=== PATIENT | male | born 1975 ===

== ENCOUNTER 2020-01-21 06:11 | Observation (INO) ==
[2020-01-21] MEDS ORDERED: hydrALAZINE 20 MG/1 ML VIAL IV PRN (09:29)
[2020-01-21] MEDS ORDERED: ONDANSETRON 4 MG/2 ML VIAL IV PRN (09:29)
[2020-01-21] MEDS ORDERED: ACETAMINOPHEN 325 MG TABLET PO PRN (09:29)
[2020-01-21] MEDS ORDERED: DOCUSATE SODIUM 100 MG CAPSULE PO PRN (09:29)
[2020-01-21] MEDS ORDERED: GLUCAGON 1 MG VIAL IM PRN ×2 (09:29→09:59)
[2020-01-21] MEDS ORDERED: DEXTROSE 50% 25 GM/50 ML VIAL IV PRN ×2 (09:29→09:59)
[2020-01-21 10:19] LABS: Basophils # 0.1 10*3/uL (0.0-0.2); Basophils % 0.6 % (0.0-0.8); Eosinophils # 0.2 10*3/uL (0.0-0.87); Eosinophils % 2.2 % (0.00-10.9); Hematocrit 40.1 VOL% (42.0-52.0); Hemoglobin 13.4 GM/DL (14.0-18.0); Immature Granulocytes % 0.2 %; Immature Granulocytes Absolute 0.02 #; Lymphocytes # 2.8 10*3/uL (1.4-4.0); Lymphocytes % 34.2 % (21.2-54.2); Mean Corpuscular HGB Conc 33.4 GM/DL (32-36); Mean Corpuscular Volume 91.1 FL (87-102); Mean Platelet Volume 10.4 FL (9.6-12.0); Monocytes % 11.6 % (1.7-12.7); Neutrophils % 51.2 % (38.7-73.9); Platelet Count 180 T/CUMM (130-400); Red Cell Distribution Width 13.9 % (9.3-17.3); White Blood Count 8.1 T/CUMM (4-12)
[2020-01-21] MEDS: lisinopriL 5 MG TABLET PO SCH (10:44)
[2020-01-21] MEDS: SIMVASTATIN 10 MG TABLET PO SCH (10:44)
[2020-01-21 10:47] LABS: Albumin 2.9 G/DL (3.4-5.0); Bilirubin,Total 0.6 MG/DL (0.2-1.0); Calcium 8.6 MG/DL (8.5-10.1); Osmolality,Calculated 271.7 MOS/KG (273-304); Total Protein 7.6 G/DL (6.4-8.3)
[2020-01-21] MEDS: INSULIN LISPRO 100 UNIT/ML SUBCUT SCH ×4 (11:50→21:41)
[2020-01-21] MEDS: ENOXAPARIN 40 MG/0.4 ML SYRINGE SUBCUT SCH (12:08)
[2020-01-21 12:50] LABS: Apearance,Urine CLEAR (Clear); Bilirubin,Urine Negative (Negative); Blood, Urine Negative (Negative); Glucose,Urine (UA) Negative (Negative); Ketones,Urine Negative (Negative); Nitrite,Urine Negative (Negative); Protein,Urine Negative; RBC,Urine 4 /HPF (0-4); Squamous Epithelial Cell,Urine Occasional /HPF (0-10); Urine Color Yellow (Yellow); Urine Specific Gravity 1.036 (1.001-1.035); WBC,Urine 1 /HPF (0-6)
[2020-01-22 06:17] LABS: Basophils # 0.1 10*3/uL (0.0-0.2); Basophils % 0.7 % (0.0-0.8); Eosinophils # 0.1 10*3/uL (0.0-0.87); Hematocrit 37.6 VOL% (42.0-52.0); Hemoglobin 12.5 GM/DL (14.0-18.0); Immature Granulocytes % 0.3 %; Immature Granulocytes Absolute 0.02 #; Lymphocytes % 27.5 % (21.2-54.2); Mean Corpuscular HGB Conc 33.2 GM/DL (32-36); Mean Corpuscular Volume 91.9 FL (87-102); Mean Platelet Volume 10.5 FL (9.6-12.0); Neutrophils % 59.5 % (38.7-73.9); Platelet Count 173 T/CUMM (130-400); Red Blood Count 4.09 MC/CUMM (3.8-5.5); Red Cell Distribution Width 13.9 % (9.3-17.3); White Blood Count 7.1 T/CUMM (4-12)
[2020-01-22 06:45] LABS: Calcium 8.2 MG/DL (8.5-10.1); Osmolality,Calculated 272.7 MOS/KG (273-304); Risk Ratio 2.63; Thyroid Stimulating Hormone 0.757 uIU/ml (0.358-3.74)
[2020-01-22 08:38] VITALS: BP 124/72
[2020-01-22] MEDS: lisinopriL 5 MG TABLET PO SCH (09:41)
[2020-01-22] MEDS: SIMVASTATIN 10 MG TABLET PO SCH (09:41)
[2020-01-22] MEDS: ENOXAPARIN 40 MG/0.4 ML SYRINGE SUBCUT SCH (09:42)
[2020-01-22] MEDS: INSULIN LISPRO 100 UNIT/ML SUBCUT SCH ×2 (10:12→12:17)
== END 2020-01-22 14:22 | disposition home or self-care (01) ==
LOC: N.TELES → SUATTDRO 07:42
PROVIDERS: ADMIT Internal Medicine; ATTEND Internal Medicine Geriatric Medicine

== ENCOUNTER 2020-07-06 16:38 | Inpatient (IN) ==
[2020-07-06] MEDS ORDERED: GLUCAGON 1 MG VIAL IM PRN ×2 (20:06)
[2020-07-06] MEDS ORDERED: DEXTROSE 50% 25 GM/50 ML VIAL IV PRN ×2 (20:06)
[2020-07-06] MEDS: INSULIN LISPRO 100 UNIT/ML SUBCUT SCH (21:55)
[2020-07-06] MEDS: HEPARIN 5,000 UNIT/1 ML VIAL SUBCUT SCH (21:55)
[2020-07-07 04:11] LABS: Basophils % 0.2 % (0.0-0.8); Hematocrit 39.9 VOL% (42.0-52.0); Hemoglobin 13.6 GM/DL (14.0-18.0); Immature Granulocytes % 0.4 %; Immature Granulocytes Absolute 0.02 #; Lymphocytes % 21.8 % (21.2-54.2); Mean Corpuscular HGB Conc 34.1 GM/DL (32-36); Mean Corpuscular Volume 88.9 FL (87-102); Mean Platelet Volume 9.8 FL (9.6-12.0); Monocytes % 7.7 % (1.7-12.7); Neutrophils % 69.9 % (38.7-73.9); Platelet Count 213 T/CUMM (130-400); Red Blood Count 4.49 MC/CUMM (3.8-5.5); Red Cell Distribution Width 13.5 % (9.3-17.3); White Blood Count 4.5 T/CUMM (4-12)
[2020-07-07 04:31] LABS: Lymphocytes 15 % (20-55); Segmented Neutrophils 77 % (50-85); Total Cells Counted 100
[2020-07-07 04:32] LABS: Hypochromasia 1+; Microcytosis Slight; Platelet Estimate Adequate
[2020-07-07 04:40] LABS: Calcium 8.2 MG/DL (8.5-10.1); Risk Ratio 5.25; Thyroid Stimulating Hormone 0.163 uIU/ml (0.358-3.74); VLDL CHOLESTEROL 19.2 MG/DL
[2020-07-07] MEDS: HEPARIN 5,000 UNIT/1 ML VIAL SUBCUT SCH ×3 (05:45→21:18)
[2020-07-07] MEDS: INSULIN LISPRO 100 UNIT/ML SUBCUT SCH ×4 (09:00→20:44)
[2020-07-07] MEDS: DEXAMETHASONE 4 MG/1 ML VIAL IV SCH (09:00)
[2020-07-07] MEDS: lisinopriL 5 MG TABLET PO SCH (09:02)
[2020-07-07] MEDS: ZINC GLUCONATE 50 MG TABLET PO SCH (09:02)
[2020-07-07] MEDS: ASCORBIC ACID 500 MG TABLET PO SCH ×2 (09:02→20:44)
[2020-07-07] MEDS: ASPIRIN EC 81 MG TABLET PO SCH (09:02)
[2020-07-07] MEDS: PANTOPRAZOLE 40 MG TABLET PO SCH (09:02)
[2020-07-07] MEDS: LEVOFLOXACIN INJ 750 MG in PREMIX 1 EACH IV SCH (09:04)
[2020-07-07] MEDS: CHOLECALCIFEROL 1,000 UNIT TABLET PO SCH (09:27)
[2020-07-07] MEDS: INSULIN GLARGINE 100 UNIT/ML SUBCUT SCH (20:43)
[2020-07-07] MEDS ORDERED: INSULIN GLARGINE 100 UNIT/ML SUBCUT SCH (21:00)
[2020-07-08] MEDS: HEPARIN 5,000 UNIT/1 ML VIAL SUBCUT SCH ×3 (05:23→21:33)
[2020-07-08 06:08] LABS: Basophils % 0.1 % (0.0-0.8); Hematocrit 39.4 VOL% (42.0-52.0); Hemoglobin 13.5 GM/DL (14.0-18.0); Immature Granulocytes % 0.4 %; Immature Granulocytes Absolute 0.03 #; Lymphocytes # 1.4 10*3/uL (1.4-4.0); Lymphocytes % 16.1 % (21.2-54.2); Mean Corpuscular HGB Conc 34.3 GM/DL (32-36); Mean Corpuscular Volume 88.7 FL (87-102); Mean Platelet Volume 9.7 FL (9.6-12.0); Monocytes % 10.8 % (1.7-12.7); Neutrophils % 72.6 % (38.7-73.9); Platelet Count 224 T/CUMM (130-400); Red Blood Count 4.44 MC/CUMM (3.8-5.5); Red Cell Distribution Width 13.5 % (9.3-17.3); White Blood Count 8.5 T/CUMM (4-12)
[2020-07-08 06:27] LABS: Calcium 8.2 MG/DL (8.5-10.1); Ferritin 551.2 ng/ml (26-388)
[2020-07-08] MEDS: CHOLECALCIFEROL 1,000 UNIT TABLET PO SCH (08:21)
[2020-07-08] MEDS: DEXAMETHASONE 4 MG/1 ML VIAL IV SCH (08:21)
[2020-07-08] MEDS: LEVOFLOXACIN INJ 750 MG in PREMIX 1 EACH IV SCH (08:21)
[2020-07-08] MEDS: ASCORBIC ACID 500 MG TABLET PO SCH ×2 (08:21→21:33)
[2020-07-08] MEDS: ASPIRIN EC 81 MG TABLET PO SCH (08:22)
[2020-07-08] MEDS: INSULIN LISPRO 100 UNIT/ML SUBCUT SCH ×4 (08:22→21:32)
[2020-07-08] MEDS: PANTOPRAZOLE 40 MG TABLET PO SCH (08:22)
[2020-07-08] MEDS: ZINC GLUCONATE 50 MG TABLET PO SCH (08:22)
[2020-07-08] MEDS: lisinopriL 5 MG TABLET PO SCH (08:22)
[2020-07-08] MEDS ORDERED: lisinopriL 10 MG TABLET PO SCH (10:23)
[2020-07-08] MEDS: INSULIN GLARGINE 100 UNIT/ML SUBCUT SCH (21:33)
[2020-07-09 03:43] LABS: Basophils % 0.1 % (0.0-0.8); Immature Granulocytes % 0.8 %; Immature Granulocytes Absolute 0.06 #; Lymphocytes # 1.2 10*3/uL (1.4-4.0); Lymphocytes % 15.3 % (21.2-54.2); Mean Corpuscular Volume 86.4 FL (87-102); Mean Platelet Volume 9.9 FL (9.6-12.0); Monocytes % 11.5 % (1.7-12.7); Neutrophils % 72.3 % (38.7-73.9); Platelet Count 231 T/CUMM (130-400); Red Blood Count 4.63 MC/CUMM (3.8-5.5); Red Cell Distribution Width 13.5 % (9.3-17.3); White Blood Count 7.6 T/CUMM (4-12)
[2020-07-09 04:14] LABS: Calcium 8.4 MG/DL (8.5-10.1); Ferritin 591.3 ng/ml (26-388); Osmolality,Calculated 280.2 MOS/KG (273-304)
[2020-07-09] MEDS: HEPARIN 5,000 UNIT/1 ML VIAL SUBCUT SCH (06:40)
[2020-07-09] MEDS ORDERED: INSULIN GLARGINE 100 UNIT/ML SUBCUT SCH (07:38)
[2020-07-09] MEDS ORDERED: ACETAMINOPHEN 325 MG TABLET PO PRN (08:02)
[2020-07-09] MEDS ORDERED: amLODIPine 5 MG TABLET PO SCH (09:00)
[2020-07-09] MEDS: PANTOPRAZOLE 40 MG TABLET PO SCH (09:29)
[2020-07-09] MEDS: CHOLECALCIFEROL 1,000 UNIT TABLET PO SCH (09:29)
[2020-07-09] MEDS: ASPIRIN EC 81 MG TABLET PO SCH (09:29)
[2020-07-09] MEDS: INSULIN LISPRO 100 UNIT/ML SUBCUT SCH ×2 (09:29→12:20)
[2020-07-09] MEDS: DEXAMETHASONE 4 MG/1 ML VIAL IV SCH (09:29)
[2020-07-09] MEDS: ASCORBIC ACID 500 MG TABLET PO SCH (09:29)
[2020-07-09] MEDS: ZINC GLUCONATE 50 MG TABLET PO SCH (09:29)
[2020-07-09] MEDS: LEVOFLOXACIN INJ 750 MG in PREMIX 1 EACH IV SCH (09:33)
[2020-07-09 12:09] VITALS: BP 139/68
== END 2020-07-09 14:15 | disposition home or self-care (01) | DRG 177 ==
LOC: N.2E → SUATTDRO 19:50
PROVIDERS: ADMIT Internal Medicine; ATTEND Hospitalist